=== PATIENT | male | born 1950 | race Caucasian/White ===

== ENCOUNTER 2018-10-23 13:50 | Day surgery (SDC) | payer MEDICARE, OTHER ==
[2018-10-20 09:40] LABS: BASOPHILS % (AUTO) 0.4 % (0-1); EOSINOPHILS # (AUTO) 0.2 X10'3 (0-0.9); EOSINOPHILS % (AUTO) 2.3 % (0-6); HEMATOCRIT 45.1 % (42.0-52.0); HEMOGLOBIN 15.1 g/dl (14.0-17.9); LYMPHOCYTES # (AUTO) 2.2 X10'3 (1.1-4.8); LYMPHOCYTES % (AUTO) 23.1 % (21-51); MEAN CORPUSCULAR HEMOGLOBIN 31.2 PG (27.0-31.0); MEAN CORPUSCULAR HGB CONC 33.6 g/dL (33.0-36.5); MEAN PLATELET VOLUME 9.4 FL (7.4-10.4); MONOCYTES % (AUTO) 10.2 % (2-12); PLATELET COUNT 254 X10'3 (140-440); RED BLOOD COUNT 4.85 X10'6 (4.70-6.10); RED CELL DISTRIBUTION WIDTH 15.5 % (11.5-14.5); WHITE BLOOD COUNT 9.4 X10'3 (4.5-11.0)
[2018-10-20 09:50] LABS: ALBUMIN 3.8 G/DL (3.4-5.0); ANION GAP 8 (8-16); BLOOD UREA NITROGEN 14 MG/DL (7-18); BUN/CREATININE RATIO 14.4 (5.4-32.0); CALCIUM 9.2 MG/DL (8.5-10.1); CHLORIDE 101 MMOL/L (99-107); CREATININE 0.97 MG/DL (0.60-1.10); GLUCOSE 178 MG/DL (70-104); POTASSIUM 4.3 MMOL/L (3.5-5.1); SODIUM 137 MMOL/L (135-145); TOTAL CARBON DIOXIDE 28.2 MMOL/L (24-32); eGFR 77 ML/MIN
[2018-10-20 09:57] LABS: PARTIAL THROMBOPLASTIN TIME 28 SECONDS (22-32)
[~2018-10-23] VITALS: Ht 162.6 cm; Wt 69.2 kg
[2018-10-23] VITALS (8 sets, daily range): BP systolic 113–159; BP diastolic 48–71
[~2018-10-23 13:50] MED LIST: ASPI-611 PO; ATOR80TA PO; CHOL100046 PO; CLOP75TA15 PO; GLIP10TA11 PO; HUM7525 SQ; INSU100V12 SQ; LIRA0.6P SQ; LISI1TAB11 PO; NITR0.4T51 SL; PIOG30TA10 PO; PREG300C PO
[2018-10-23] MEDS ORDERED: normal saline 1000ml 1,000 ML IV SCH (14:10)
[2018-10-23] MEDS ORDERED: diphenhydrAMINE 25mg capsule PO PRN (14:10)
[2018-10-23] MEDS ORDERED: LIDOcaine/PRILOcaine 5gm cream TP ONE (14:10)
[2018-10-23] MEDS ORDERED: LORazepam 0.5 MG tablet PO PRN (14:10)
[2018-10-23] MEDS ORDERED: MAGN400C PO (14:23)
[2018-10-23] MEDS ORDERED: PREG150C PO (14:23)
[2018-10-23] MEDS ORDERED: SOLI5TAB2 PO (14:23)
[2018-10-23] MEDS ORDERED: fentaNYL/PF 50MCG/1 ML 2ML syringe ONE (16:22)
[2018-10-23] MEDS ORDERED: midazolam 2 mg/2 ml injection ONE (16:22)
[2018-10-23] MEDS ORDERED: iohexol 350MG/ML 100ml bottle IV ONE ×2 (16:23→17:25)
[2018-10-23] MEDS ORDERED: LIDOcaine 1% (10mg/ml)w/preservative injection 20ml MDV ONE (16:23)
[2018-10-23] MEDS ORDERED: nitroGLYCERIN-Tridil 50MG/D5W 250 ML IV ONE (16:49)
[2018-10-23] MEDS ORDERED: verapamil 2.5 mg/ml inj IV ONE (16:49)
[2018-10-23] MEDS ORDERED: heparin 1,000unit/ml 10ml vial 10 ML ONE ×2 (16:49→17:25)
[2018-10-23] MEDS ORDERED: ticagrelor 90mg tablet ONE (17:23)
[2018-10-23] MEDS ORDERED: HYDROcodone/acetaminophen 10/325mg tab PO PRN (18:25)
[2018-10-23] MEDS ORDERED: OXAZEpam 15mg capsule PO PRN (18:25)
[2018-10-23] MEDS ORDERED: proCHLORperazine 10 MG/2 ml inj IV PRN (18:25)
[2018-10-23] MEDS ORDERED: HYDROcodone/acetaminophen 5mg/325mg tablet PO PRN (18:25)
[2018-10-23] MEDS ORDERED: ondansetron/PF 4mg/2ml inj IV PRN (18:25)
== END 2018-10-23 22:00 | disposition home or self-care (01) ==
LOC: SSTAY O 13:50
PROVIDERS: ATTEND Internal Medicine Interventional Cardiology
DX: I25.119 Atherosclerotic heart disease of native coronary artery with unspecified angina pectoris (principal); I73.9 Peripheral vascular disease, unspecified; I10 Essential (primary) hypertension; E78.5 Hyperlipidemia, unspecified; E11.9 Type 2 diabetes mellitus without complications; Z86.73 Personal history of transient ischemic attack (TIA), and cerebral infarction without residual deficits; Z95.5 Presence of coronary angioplasty implant and graft; Z72.0 Tobacco use; Z79.899 Other long term (current) drug therapy; Z79.4 Long term (current) use of insulin; Z79.82 Long term (current) use of aspirin
CPT/HCPCS: 36415; 80048; 82948; 85025; 85610; 85730; 93005; 93458; A6257; J1644; J2001; J2250; J3010; J7030; Q0163; Q9967; 92920; 99152; A4620; C1769; J3490

== ENCOUNTER 2018-11-23 05:15 | Inpatient (IN) | payer MEDICARE, OTHER | END 2018-11-28 13:30 | LOC: MED 3N 11-27 09:50 → PAS IN 05:15 → CICU 2S 10:51 | PROC: 02100A3 Bypass Coronary Artery, One Artery from Coronary Artery with Autologous Arterial Tissue, Open Approach (ICD-10-PCS; principal; 2018-11-23 06:56) | PROC: 0213099 Bypass Coronary Artery, Four or More Arteries from Left Internal Mammary with Autologous Venous Tissue, Open Approach (ICD-10-PCS; 2018-11-23 06:56) | PROC: 06BQ0ZZ Excision of Left Saphenous Vein, Open Approach (ICD-10-PCS; 2018-11-23 06:56) | PROC: 5A1935Z Respiratory Ventilation, Less than 24 Consecutive Hours (ICD-10-PCS; 2018-11-23 06:56) | DX: I25.110 Atherosclerotic heart disease of native coronary artery with unstable angina pectoris (principal); I73.9 Peripheral vascular disease, unspecified; I65.23 Occlusion and stenosis of bilateral carotid arteries; E11.8 Type 2 diabetes mellitus with unspecified complications; F17.200 Nicotine dependence, unspecified, uncomplicated ==

== ENCOUNTER 2019-01-01 17:37 | Observation (INO) | payer MEDICARE, OTHER ==
[~2019-01-01] VITALS: Ht 165.1 cm; Wt 65.0 kg
[~2019-01-01 17:37] MED LIST changes: -LIRA0.6P SQ; +LUTE40CA PO; +MAGN400C PO; +PREG150C PO; -PREG300C PO; +PYRI50TA13 PO; +SOLI5TAB2 PO; +VITA1TAB20 PO; +[UNRECOGNIZED DRUG - CODE] PO
[2019-01-01 19:01] LABS: BASOPHILS # (AUTO) 0.2 X10'3 (0-0.2); EOSINOPHILS # (AUTO) 0.4 X10'3 (0-0.9); EOSINOPHILS % (AUTO) 2.6 % (0-6); HEMOGLOBIN 12.7 g/dl (14.0-17.9); LYMPHOCYTES # (AUTO) 1.6 X10'3 (1.1-4.8); LYMPHOCYTES % (AUTO) 9.9 % (21-51); MEAN CORPUSCULAR HEMOGLOBIN 29.3 PG (27.0-31.0); MEAN CORPUSCULAR HGB CONC 33.4 g/dL (33.0-36.5); MEAN CORPUSCULAR VOLUME 87.8 FL (78-98); MEAN PLATELET VOLUME 9.4 FL (7.4-10.4); MONOCYTES # (AUTO) 1.4 X10'3 (0-0.9); MONOCYTES % (AUTO) 8.2 % (2-12); NEUTROPHILS # (AUTO) 12.9 X10'3 (1.8-7.7); NEUTROPHILS % (AUTO) 78.3 % (42-75); PLATELET COUNT 317 X10'3 (140-440); RED BLOOD COUNT 4.33 X10'6 (4.70-6.10); RED CELL DISTRIBUTION WIDTH 16.3 % (11.5-14.5); WHITE BLOOD COUNT 16.5 X10'3 (4.5-11.0)
[2019-01-01 19:14] LABS: ALANINE AMINOTRANSFERASE 37 U/L (12-78); ALBUMIN 3.5 G/DL (3.4-5.0); ALKALINE PHOSPHATASE 192 IU/L (46-116); ANION GAP 9 (8-16); ASPARTATE AMINO TRANSFERASE 22 U/L (10-37); BILIRUBIN,TOTAL 0.3 MG/DL (0.1-1.0); BLOOD UREA NITROGEN 12 MG/DL (7-18); CALCIUM 9.1 MG/DL (8.5-10.1); CHLORIDE 102 MMOL/L (99-107); CREATININE 0.92 MG/DL (0.60-1.10); GLUCOSE 226 MG/DL (70-104); POTASSIUM 4.2 MMOL/L (3.5-5.1); SODIUM 139 MMOL/L (135-145); TOTAL CARBON DIOXIDE 27.9 MMOL/L (24-32); TOTAL PROTEIN 7.1 G/DL (6.4-8.2); eGFR 81 ML/MIN
[2019-01-01 19:19] LABS: PARTIAL THROMBOPLASTIN TIME 26 SECONDS (22-32)
[2019-01-01] MEDS ORDERED: normal saline 1000ml 1,000 ML IV ONE (19:25)
[2019-01-01 19:58] LABS: CLARITY,URINE CLEAR (Clear); COLOR,URINE YELLOW (Yellow); GLUCOSE, URINE NEGATIVE (Neg); KETONES,URINE NEGATIVE (Neg); LEUKOCYTE ESTERASE ,URINE NEGATIVE (Neg); NITRITES, URINE NEGATIVE (Neg); OCCULT BLOOD,URINE NEGATIVE (Neg); PH,URINE 5.5 (4.8-8.0); PROTEIN,URINE NEGATIVE (Neg); UROBILINOGEN,URINE 0.2 E.U/dL (0.2-1.0)
[2019-01-01 20:01] LABS: UA COLLECTION TYPE CLN CATCH MIDSTREAM
[2019-01-01 20:04] LABS: ANISOCYTOSIS 1+; PLATELET ESTIMATE NORMAL; TOTAL CELLS COUNTED 100
[2019-01-01] MEDS ORDERED: AMIO200T40 PO (21:33)
[2019-01-01] MEDS ORDERED: HYDROcodone/acetaminophen 10/325mg tab PO PRN (21:40)
[2019-01-01] MEDS ORDERED: dextrose 50%-water 50ml dispensing syringe IV PRN ×2 (21:40)
[2019-01-01] MEDS ORDERED: Melatonin 3mg tablet PO PRN (21:40)
[2019-01-01] MEDS ORDERED: MESSAGE TO PHARMACY PO ONE (21:40)
[2019-01-01] MEDS ORDERED: acetaminophen 325mg tablet PO PRN (21:40)
[2019-01-01] MEDS ORDERED: glucagon, human recombinant 1mg kit SUBCUT PRN (21:40)
[2019-01-01] MEDS ORDERED: dextrose ORAL solution 15 GM/59 ML bottle PO PRN (21:40)
[2019-01-01] MEDS ORDERED: HYDROcodone/acetaminophen 5mg/325mg tablet PO PRN (21:40)
[2019-01-01] MEDS ORDERED: nitroGLYCERIN 0.4mg SUBLingual tab SL PRN (21:50)
--- NOTE | 2019-01-01 23:09 | NUR ---
Patient sleeping comfortably in bed.
--- NOTE | 2019-01-02 00:09 | NUR ---
Patient continues to sleep.
--- NOTE | 2019-01-02 01:22 | NUR ---
IV flushed while patient is awake. No requests at this time and he is resting comfortably in bed.
--- NOTE | 2019-01-02 05:05 | NUR ---
Patient sleeping comfortably in bed.
[2019-01-02 07:26] LABS: BASOPHILS # (AUTO) 0.1 X10'3 (0-0.2); BASOPHILS % (AUTO) 0.8 % (0-1); EOSINOPHILS # (AUTO) 0.6 X10'3 (0-0.9); EOSINOPHILS % (AUTO) 5.3 % (0-6); HEMATOCRIT 37.1 % (42.0-52.0); HEMOGLOBIN 12.2 g/dl (14.0-17.9); LYMPHOCYTES # (AUTO) 1.8 X10'3 (1.1-4.8); LYMPHOCYTES % (AUTO) 16.5 % (21-51); MEAN CORPUSCULAR HEMOGLOBIN 28.9 PG (27.0-31.0); MEAN CORPUSCULAR HGB CONC 32.9 g/dL (33.0-36.5); MEAN PLATELET VOLUME 9.5 FL (7.4-10.4); MONOCYTES # (AUTO) 1.2 X10'3 (0-0.9); MONOCYTES % (AUTO) 10.8 % (2-12); NEUTROPHILS # (AUTO) 7.3 X10'3 (1.8-7.7); NEUTROPHILS % (AUTO) 66.6 % (42-75); PLATELET COUNT 276 X10'3 (140-440); RED BLOOD COUNT 4.22 X10'6 (4.70-6.10); RED CELL DISTRIBUTION WIDTH 15.9 % (11.5-14.5); WHITE BLOOD COUNT 10.9 X10'3 (4.5-11.0)
[2019-01-02 07:41] LABS: ALBUMIN 3.1 G/DL (3.4-5.0); ANION GAP 8 (8-16); BLOOD UREA NITROGEN 11 MG/DL (7-18); BUN/CREATININE RATIO 12.6 (5.4-32.0); CALCIUM 8.8 MG/DL (8.5-10.1); CHLORIDE 107 MMOL/L (99-107); CREATININE 0.87 MG/DL (0.60-1.10); GLUCOSE 222 MG/DL (70-104); POTASSIUM 4.1 MMOL/L (3.5-5.1); SODIUM 139 MMOL/L (135-145); TOTAL CARBON DIOXIDE 24.3 MMOL/L (24-32); eGFR 87 ML/MIN
[2019-01-02] MEDS ORDERED: VIT A PO SCH (08:00)
[2019-01-02] MEDS ORDERED: COPPER PO SCH (08:00)
[2019-01-02] MEDS ORDERED: ZINC PO SCH (08:00)
[2019-01-02] MEDS ORDERED: insulin glargine (Lantus) pen - multi-dose SQ SCH (08:00)
[2019-01-02] MEDS ORDERED: SELENIUM PO SCH (08:00)
[2019-01-02] MEDS ORDERED: [UNRECOGNIZED DRUG - OTHER] PO SCH (08:00)
[2019-01-02] MEDS: magnesium oxide 400mg tablet PO SCH (08:48)
[2019-01-02] MEDS: aspirin 81mg tab.chew PO SCH (08:48)
[2019-01-02] MEDS: vitamin B comp w/Vit. C tab 1 TAB TABLET PO SCH (08:48)
[2019-01-02] MEDS: vitamin D (cholecalciferol) 1,000 unit tablet PO SCH ×2 (08:48→20:42)
[2019-01-02] MEDS: atorvastatin 20mg tablet PO SCH (08:49)
[2019-01-02] MEDS: pregabalin 75mg capsule PO SCH ×2 (08:49→20:42)
[2019-01-02] MEDS: enoxaparin 40mg/0.4ml syringe SUBCUT SCH (08:50)
[2019-01-02] MEDS: pyridoxine 50mg tablet PO SCH (08:57)
--- NOTE | 2019-01-02 08:59 | NUR ---
Requested Bret from Pharmacy
[2019-01-02 10:15] VITALS: BP 151/71
[2019-01-02 10:18] VITALS: BP_SYST 118; BP_SYST 133; BP_SYST 149; BP_DIAS 53; BP_DIAS 56; BP_DIAS 69
[2019-01-02] MEDS: normal saline 1000ml 1,000 ML IV SCH ×2 (10:48→23:06)
[2019-01-02] MEDS ORDERED: AMIO200T40 PO (11:15)
[2019-01-02] MEDS: insulin Lispro (HumaLOG) vial - multi-dose SQ SCH (14:10)
[2019-01-02 15:00] VITALS: BP 145/58
[2019-01-02] MEDS: dextrose ORAL solution 15 GM/59 ML bottle PO PRN (16:51)
--- NOTE | 2019-01-02 17:07 | NUR ---
PAGER ID: [phone] MESSAGE: Dr. Irene, cortez Nixon in 0614N has a critical glucose of 52. I have begun treatment per protocol. Art, [id number]
--- NOTE | 2019-01-02 17:23 | NUR ---
Blood sugar stable after treatment.
[2019-01-02 18:00] VITALS: BP 162/62
--- NOTE | 2019-01-02 18:28 | NUR ---
Problems reprioritized. Patient report given, questions answered & plan of care reviewed with MARY CARMEN Cornejo.
--- NOTE | 2019-01-02 18:36 | NUR ---
Patient in room PCU 3028. I have received report from Art and had the opportunity to ask questions and assume patient care.
--- NOTE | 2019-01-02 18:38 | NUR ---
Patient in room PCU 3028. I have received report from Catalino RN and had the opportunity to ask questions and assume patient care. Pt is currently lying in bed. No complaints at this time. Is requesting an NC bc he wears 2L at home. NS running at 75. Alert and oriented. Receptive to care.
--- NOTE | 2019-01-02 19:33 | NUR ---
MESSAGE: Sam Bishop Nixon in 1463U here for syncope, brought new Rx of losartan that is 100mg PO daily. He has been hypertensive with no PRNs. Would you like to start this med tonight? Afia Mai Addendum: 01/02/19 at [address] by Afia Cantu [address] Dr. Yan would like this prescription to be started tonight. Order placed.
[2019-01-02 20:00] VITALS: BP_SYST 162; BP_SYST 169; BP_SYST 172; BP_DIAS 62; BP_DIAS 70; BP_DIAS 72
[2019-01-02] MEDS: losartan 50mg tablet PO SCH (20:42)
[2019-01-02] MEDS: insulin glargine (Lantus) pen - multi-dose SQ SCH (21:00)
--- NOTE | 2019-01-02 21:33 | NUR ---
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 He would like this to be brought up with CM/DCP 01/03 so that he can continue having home health when he returns home.
[2019-01-02 22:00] VITALS: BP 148/61
[2019-01-03] VITALS (11 sets, daily range): BP systolic 123–185; BP diastolic 47–80
[2019-01-03] MEDS: normal saline 1000ml 1,000 ML IV SCH
[2019-01-03 04:56] LABS: BASOPHILS # (AUTO) 0.1 X10'3 (0-0.2); BASOPHILS % (AUTO) 0.6 % (0-1); EOSINOPHILS # (AUTO) 0.5 X10'3 (0-0.9); EOSINOPHILS % (AUTO) 6.6 % (0-6); HEMATOCRIT 34.5 % (42.0-52.0); HEMOGLOBIN 11.6 g/dl (14.0-17.9); LYMPHOCYTES # (AUTO) 1.9 X10'3 (1.1-4.8); MEAN CORPUSCULAR HEMOGLOBIN 29.5 PG (27.0-31.0); MEAN CORPUSCULAR HGB CONC 33.8 g/dL (33.0-36.5); MEAN CORPUSCULAR VOLUME 87.5 FL (78-98); MEAN PLATELET VOLUME 9.6 FL (7.4-10.4); MONOCYTES % (AUTO) 11.8 % (2-12); NEUTROPHILS # (AUTO) 4.7 X10'3 (1.8-7.7); PLATELET COUNT 276 X10'3 (140-440); RED BLOOD COUNT 3.94 X10'6 (4.70-6.10); WHITE BLOOD COUNT 8.1 X10'3 (4.5-11.0)
[2019-01-03 05:05] LABS: ALBUMIN 2.9 G/DL (3.4-5.0); ANION GAP 8 (8-16); BLOOD UREA NITROGEN 10 MG/DL (7-18); CALCIUM 8.6 MG/DL (8.5-10.1); CHLORIDE 106 MMOL/L (99-107); CREATININE 0.83 MG/DL (0.60-1.10); GLUCOSE 190 MG/DL (70-104); POTASSIUM 4.3 MMOL/L (3.5-5.1); SODIUM 141 MMOL/L (135-145); TOTAL CARBON DIOXIDE 27.4 MMOL/L (24-32); eGFR > 90 ML/MIN
--- NOTE | 2019-01-03 06:34 | NUR ---
Problems reprioritized. Patient report given, questions answered & plan of care reviewed with
--- NOTE | 2019-01-03 06:39 | NUR ---
Problems reprioritized. Patient report given, questions answered & plan of care reviewed with BETO LENTZ. NEW GRAD documentation: I have reviewed and agree with all interventions, assessments performed and documented by YULI LENTZ. NEW GRAD Medication Administration: For this medication-pass time frame, all medication were reviewed, dispensed, administered and documented per hospital policy by YULI LENTZ.
--- NOTE | 2019-01-03 06:48 | NUR ---
Patient in room PCU 3028. I have received report from Chantal RN & MARY CARMEN Bob and had the opportunity to ask questions and assume patient care.
[2019-01-03] MEDS: insulin glargine (Lantus) pen - multi-dose SQ SCH ×2 (08:00→21:47)
[2019-01-03] MEDS: atorvastatin 20mg tablet PO SCH (08:40)
[2019-01-03] MEDS: pyridoxine 50mg tablet PO SCH (08:40)
[2019-01-03] MEDS: aspirin 81mg tab.chew PO SCH (08:40)
[2019-01-03] MEDS: enoxaparin 40mg/0.4ml syringe SUBCUT SCH (08:40)
[2019-01-03] MEDS: vitamin B comp w/Vit. C tab 1 TAB TABLET PO SCH (08:41)
[2019-01-03] MEDS: pregabalin 75mg capsule PO SCH ×2 (08:41→19:08)
[2019-01-03] MEDS: magnesium oxide 400mg tablet PO SCH (08:41)
[2019-01-03] MEDS: vitamin D (cholecalciferol) 1,000 unit tablet PO SCH ×2 (08:42→19:08)
[2019-01-03] MEDS: losartan 50mg tablet PO SCH (08:42)
[2019-01-03] MEDS: insulin Lispro (HumaLOG) vial - multi-dose SQ SCH ×3 (08:52→19:01)
--- NOTE | 2019-01-03 11:33 | NUR ---
Paged Dr. Irene re pt's walk with PT. PAGER ID: [phone] MESSAGE: Pt Bishop Nixon in 3324U. B/P up to 185/80 with PT. Pt felt dizzy & very weak while walking, states worse than at home. Thanks! Genny LENTZ [phone]
[2019-01-03] MEDS: meclizine 12.5mg tablet PO SCH ×2 (14:37→19:08)
--- NOTE | 2019-01-03 15:18 | NUR ---
Paged Dr. Irene re pt's latest B/P PAGER ID: [phone] MESSAGE: Pt Bishop Nixon in 2425K latest B/P . Thanks! Genny LENTZ [phone]
[2019-01-03] MEDS: dextrose ORAL solution 15 GM/59 ML bottle PO PRN (16:34)
--- NOTE | 2019-01-03 18:25 | NUR ---
Patient in room PCU 3028. I have received report from Genny LENTZ and had the opportunity to ask questions and assume patient care.
--- NOTE | 2019-01-03 18:27 | NUR ---
Problems reprioritized. Patient report given, questions answered & plan of care reviewed with MARY CARMEN Rosales.
[2019-01-04 03:00] VITALS: BP 118/47
[2019-01-04 05:39] LABS: BASOPHILS # (AUTO) 0.1 X10'3 (0-0.2); BASOPHILS % (AUTO) 0.8 % (0-1); EOSINOPHILS # (AUTO) 0.6 X10'3 (0-0.9); EOSINOPHILS % (AUTO) 7.2 % (0-6); HEMATOCRIT 36.4 % (42.0-52.0); HEMOGLOBIN 12.2 g/dl (14.0-17.9); LYMPHOCYTES % (AUTO) 23.8 % (21-51); MEAN CORPUSCULAR HEMOGLOBIN 29.3 PG (27.0-31.0); MEAN CORPUSCULAR HGB CONC 33.6 g/dL (33.0-36.5); MEAN CORPUSCULAR VOLUME 87.2 FL (78-98); MEAN PLATELET VOLUME 9.6 FL (7.4-10.4); MONOCYTES # (AUTO) 1.1 X10'3 (0-0.9); MONOCYTES % (AUTO) 12.2 % (2-12); NEUTROPHILS # (AUTO) 4.8 X10'3 (1.8-7.7); PLATELET COUNT 287 X10'3 (140-440); RED BLOOD COUNT 4.17 X10'6 (4.70-6.10); RED CELL DISTRIBUTION WIDTH 16.3 % (11.5-14.5); WHITE BLOOD COUNT 8.6 X10'3 (4.5-11.0)
[2019-01-04 05:48] LABS: ALBUMIN 2.9 G/DL (3.4-5.0); ANION GAP 9 (8-16); BLOOD UREA NITROGEN 10 MG/DL (7-18); BUN/CREATININE RATIO 12.2 (5.4-32.0); CALCIUM 8.7 MG/DL (8.5-10.1); CHLORIDE 105 MMOL/L (99-107); CREATININE 0.82 MG/DL (0.60-1.10); GLUCOSE 157 MG/DL (70-104); POTASSIUM 3.8 MMOL/L (3.5-5.1); SODIUM 141 MMOL/L (135-145); TOTAL CARBON DIOXIDE 27.5 MMOL/L (24-32); eGFR > 90 ML/MIN
[2019-01-04 06:00] VITALS: BP 145/64
--- NOTE | 2019-01-04 06:16 | NUR ---
Problems reprioritized. Patient report given, questions answered & plan of care reviewed with Kiara LENTZ.
--- NOTE | 2019-01-04 06:31 | NUR ---
Patient in room PCU 3028A. I have received report from Connie LENTZ and had the opportunity to ask questions and assume patient care.
--- NOTE | 2019-01-04 06:31 | NUR ---
Patient in room PCU 3028. I have received report from Connie LENTZ and had the opportunity to ask questions and assume patient care. Patient resting in bed, vitals are stable, will continue to monitor.
[2019-01-04 08:00] VITALS: BP_SYST 126; BP_SYST 129; BP_SYST 133; BP_DIAS 59; BP_DIAS 63; BP_DIAS 64
[2019-01-04] MEDS: insulin glargine (Lantus) pen - multi-dose SQ SCH (08:00)
[2019-01-04] MEDS: pyridoxine 50mg tablet PO SCH (08:08)
[2019-01-04] MEDS: enoxaparin 40mg/0.4ml syringe SUBCUT SCH (08:08)
[2019-01-04] MEDS: vitamin D (cholecalciferol) 1,000 unit tablet PO SCH (08:09)
[2019-01-04] MEDS: atorvastatin 20mg tablet PO SCH (08:11)
[2019-01-04] MEDS: meclizine 12.5mg tablet PO SCH (08:12)
[2019-01-04] MEDS: losartan 50mg tablet PO SCH (08:13)
[2019-01-04] MEDS: pregabalin 75mg capsule PO SCH (08:13)
[2019-01-04] MEDS: vitamin B comp w/Vit. C tab 1 TAB TABLET PO SCH (08:13)
[2019-01-04] MEDS: magnesium oxide 400mg tablet PO SCH (08:14)
[2019-01-04] MEDS: aspirin 81mg tab.chew PO SCH (08:14)
[2019-01-04] MEDS: insulin Lispro (HumaLOG) vial - multi-dose SQ SCH (08:43)
[2019-01-04] MEDS ORDERED: LOSA50TA64 PO (10:26)
[2019-01-04] MEDS ORDERED: MECL12.584 PO (10:26)
[2019-01-04 11:00] VITALS: BP 125/55
--- NOTE | 2019-01-04 12:25 | NUR ---
Dr. Gleason declared patient stable for discharge. IV and telemetry DC'd, cannula was intact. Wound photos taken. Patient educated and had opportunity to ask questions. Patient will follow up with GP within one week. All belongings were sent with patient. He was escorted in a wheelchair by [facility] and went home with in private vehicle
--- NOTE | 2019-01-04 12:48 | NUR ---
Orientee documation: I have reviewed and agree with all interventions, assessments performed and documented by Pam LENTZ.
== END 2019-01-04 12:30 | disposition home or self-care (01) ==
LOC: ER 17:37 → PCU 3S 01-02 07:48 → CMPBEDREQ 01-02 20:00
PROVIDERS: ADMIT Hospitalist; ATTEND Hospitalist
DX: S00.81XA Abrasion of other part of head, initial encounter (principal); I25.10 Atherosclerotic heart disease of native coronary artery without angina pectoris; R55 Syncope and collapse; R42 Dizziness and giddiness; I10 Essential (primary) hypertension; E78.00 Pure hypercholesterolemia, unspecified; N40.0 Benign prostatic hyperplasia without lower urinary tract symptoms; E11.40 Type 2 diabetes mellitus with diabetic neuropathy, unspecified; E78.5 Hyperlipidemia, unspecified; W18.30XA Fall on same level, unspecified, initial encounter; Z95.1 Presence of aortocoronary bypass graft; Z79.4 Long term (current) use of insulin
CPT/HCPCS: 36415; 70450; 71045; 72125; 73080; 73110; 80048; 80053; 81003; 82948; 84484; 85025; 85610; 85730; 87070; 93005; 93308; 96360; 96372; 97116; 97162; 97530; 99284; G0378; J7030; J8597; 99285; J1650; J1815

== ENCOUNTER 2020-02-25 11:36 | Day surgery (SDC) | payer MEDICARE, OTHER ==
[~2020-02-25] VITALS: Ht 165.1 cm; Wt 65.0 kg
[~2020-02-25 11:36] MED LIST changes: +AMIO200T61 PO; -CLOP75TA15 PO; -LISI1TAB11 PO; +LOSA50TA64 PO; +MECL-183 PO; -PIOG30TA10 PO; +VIT-11 PO; -[UNRECOGNIZED DRUG - CODE] PO
[2020-02-25 12:02] VITALS: BP 149/67
[2020-02-25] MEDS ORDERED: LIDOcaine 1%/PF 5ML 10 MG/ML VIAL ONE (12:04)
[2020-02-25] MEDS ORDERED: iohexol 300 MG/1 ML 50ml polymer ONE (12:04)
[2020-02-25] MEDS ORDERED: LOSA25TA96 PO (12:08)
[2020-02-25] MEDS ORDERED: AMLO10TA48 PO (12:08)
[2020-02-25] MEDS ORDERED: normal saline 1000ml 1,000 ML IV SCH (12:14)
[2020-02-25 12:45] VITALS: BP 108/48
[2020-02-25 13:00] VITALS: BP 110/46
[2020-02-25 13:15] VITALS: BP 105/65
== END 2020-02-25 13:20 | disposition home or self-care (01) ==
LOC: SSTAY O 11:36
PROVIDERS: ATTEND Radiology Diagnostic Radiology
DX: Z43.1 Encounter for attention to gastrostomy (principal); R13.10 Dysphagia, unspecified
CPT/HCPCS: 43763; 74018; Q9967; B4087

== ENCOUNTER 2020-04-30 13:25 | Outpatient (CLI) | payer MEDICARE, OTHER ==
[~2020-04-30 13:25] MED LIST changes: +AMLO10TA48 PO; -GLIP10TA11 PO; +LOSA25TA96 PO; -LOSA50TA64 PO; -LUTE40CA PO; -MAGN400C PO; -MECL-183 PO; -PYRI50TA13 PO; -SOLI5TAB2 PO; -VIT-11 PO; -VITA1TAB20 PO; +barium sulfate 450ml oral suspension ONE
== END 2020-04-30 23:59 | disposition home or self-care (01) ==
LOC: RAD 13:25
PROVIDERS: ATTEND Psychiatry & Neurology Neurology
DX: R13.12 Dysphagia, oropharyngeal phase (principal); G12.22 Progressive bulbar palsy; R49.0 Dysphonia
CPT/HCPCS: 74230

== ENCOUNTER 2021-06-09 09:00 | Emergency (ER) | payer MEDICARE, OTHER ==
[~2021-06-09] VITALS: Ht 165.1 cm; Wt 61.8 kg
[~2021-06-09 09:00] MED LIST changes: -barium sulfate 450ml oral suspension ONE
[2021-06-09] MEDS ORDERED: iohexol 300 MG/1 ML 50ml polymer ONE (14:33)
--- NOTE | 2021-06-09 15:36 | NUR ---
patient returned from angio with new g tube
[2021-06-09] MEDS ORDERED: GLIP5TAB13 PO ×2 (17:14)
[2021-06-09] MEDS ORDERED: LOSA100T57 PO (17:14)
--- NOTE | 2021-06-09 17:18 | NUR ---
ADJUNCT PROFESSOR OF ENGLISH AT BEDSIDE.
[2021-06-09 17:20] VITALS: BP 142/85
== END 2021-06-09 18:59 | disposition home or self-care (01) ==
LOC: ER 09:01
DX: K94.23 Gastrostomy malfunction (principal); E78.00 Pure hypercholesterolemia, unspecified; I10 Essential (primary) hypertension; Z88.6 Allergy status to analgesic agent
CPT/HCPCS: 49450; 71045; 71250; 82948; 99285; B4087; C1769; Q9967

== ENCOUNTER 2021-10-02 08:35 | Day surgery (SDC) | payer MEDICARE ==
[~2021-10-02] VITALS: Ht 162.6 cm; Wt 55.7 kg
[~2021-10-02 08:35] MED LIST changes: +GLIP5TAB13 PO; +LOSA100T57 PO; -LOSA25TA96 PO
[2021-10-02] MEDS ORDERED: iohexol 300 MG/1 ML 50ml polymer ONE (09:06)
[2021-10-02 09:20] VITALS: BP 152/55
--- NOTE | 2021-10-02 09:25 | NUR ---
G-tube exchange performed by angio. KUB xray ordered. Awaiting results. Patient denies pain. VSS. Site CDI.
[2021-10-02] MEDS ORDERED: MULT-620 PO (09:53)
[2021-10-02] MEDS ORDERED: CALC250T2 PO (09:53)
[2021-10-02] MEDS ORDERED: VITA1CAP16 PO (09:53)
[2021-10-02] MEDS ORDERED: SOLI10TA2 PO (09:53)
== END 2021-10-02 09:40 | disposition home or self-care (01) ==
LOC: SSTAY O 08:35
PROVIDERS: ATTEND Radiology Vascular & Interventional Radiology
DX: Z43.1 Encounter for attention to gastrostomy (principal); I10 Essential (primary) hypertension; E78.00 Pure hypercholesterolemia, unspecified; N40.0 Benign prostatic hyperplasia without lower urinary tract symptoms; E11.9 Type 2 diabetes mellitus without complications; Z98.41 Cataract extraction status, right eye; Z98.42 Cataract extraction status, left eye; Z88.8 Allergy status to other drugs, medicaments and biological substances; Z79.84 Long term (current) use of oral hypoglycemic drugs; Z79.82 Long term (current) use of aspirin; Z79.899 Other long term (current) drug therapy; Z82.49 Family history of ischemic heart disease and other diseases of the circulatory system; Z83.3 Family history of diabetes mellitus
CPT/HCPCS: 43762; 74018; B4087; Q9967

== ENCOUNTER 2022-01-15 08:18 | Day surgery (SDC) | payer MEDICARE ==
[~2022-01-15] VITALS: Ht 162.6 cm; Wt 62.1 kg
[~2022-01-15 08:18] MED LIST changes: -AMIO200T61 PO; -ASPI-611 PO; +CALC250T2 PO; -CHOL100046 PO; +MULT-620 PO; -NITR0.4T51 SL; +SOLI10TA2 PO; +VITA1CAP16 PO
[2022-01-15] MEDS ORDERED: MIRA50TA PO (08:45)
[2022-01-15 08:53] VITALS: BP 142/63
[2022-01-15] MEDS ORDERED: iohexol 300 MG/1 ML 50ml polymer ONE (09:52)
[2022-01-15] MEDS ORDERED: LIDOCAINE 1% w/preservative (10 MG/ML) inj. 10mL VIAL ONE (09:52)
[2022-01-15 09:56] VITALS: BP 159/78
[2022-01-15 10:05] VITALS: BP 145/64
== END 2022-01-15 10:20 | disposition home or self-care (01) ==
LOC: SSTAY O 08:18
PROVIDERS: ATTEND Radiology Vascular & Interventional Radiology
DX: Z43.1 Encounter for attention to gastrostomy (principal); R47.02 Dysphasia; E78.00 Pure hypercholesterolemia, unspecified; I10 Essential (primary) hypertension; N40.0 Benign prostatic hyperplasia without lower urinary tract symptoms; E11.9 Type 2 diabetes mellitus without complications; Z79.4 Long term (current) use of insulin; Z79.899 Other long term (current) drug therapy; Z88.8 Allergy status to other drugs, medicaments and biological substances
CPT/HCPCS: 43762; 74018; 82948; B4087; Q9967

== ENCOUNTER 2022-05-21 08:20 | Day surgery (SDC) | payer MEDICARE ==
[~2022-05-21] VITALS: Ht 162.6 cm; Wt 60.4 kg
[~2022-05-21 08:20] MED LIST changes: +MIRA50TA PO; -SOLI10TA2 PO
[2022-05-21 08:50] VITALS: BP 146/67
[2022-05-21] MEDS ORDERED: IOPAMIDOL 10 ML VIAL IT ONE (10:33)
[2022-05-21 10:50] VITALS: BP 146/73
[2022-05-21 11:00] VITALS: BP 145/70
== END 2022-05-21 11:35 | disposition home or self-care (01) ==
LOC: SSTAY O 08:20
PROVIDERS: ATTEND Radiology Vascular & Interventional Radiology
DX: Z43.1 Encounter for attention to gastrostomy (principal); R47.02 Dysphasia; E78.00 Pure hypercholesterolemia, unspecified; I10 Essential (primary) hypertension; E11.9 Type 2 diabetes mellitus without complications; Z98.49 Cataract extraction status, unspecified eye; Z98.890 Other specified postprocedural states; Z88.8 Allergy status to other drugs, medicaments and biological substances; Z79.899 Other long term (current) drug therapy
CPT/HCPCS: 43762; 74018; B4087; Q9966

== ENCOUNTER 2022-11-24 10:56 | Day surgery (SDC) | payer MEDICARE ==
[~2022-11-24] VITALS: Ht 162.6 cm; Wt 60.4 kg
[~2022-11-24 10:56] MED LIST changes: -MIRA50TA PO; +OXYB-58 PO; -VITA1CAP16 PO
[2022-11-24 11:24] VITALS: BP 150/68
[2022-11-24] MEDS ORDERED: iohexol 300mg/ml 100ml inj. ONE (13:17)
[2022-11-24 13:36] VITALS: BP 145/86
== END 2022-11-24 13:50 | disposition home or self-care (01) ==
LOC: SSTAY O 10:56
PROVIDERS: ATTEND Radiology Vascular & Interventional Radiology
DX: Z43.1 Encounter for attention to gastrostomy (principal); I10 Essential (primary) hypertension; E11.9 Type 2 diabetes mellitus without complications; E78.00 Pure hypercholesterolemia, unspecified; N40.0 Benign prostatic hyperplasia without lower urinary tract symptoms; Z98.49 Cataract extraction status, unspecified eye; Z95.1 Presence of aortocoronary bypass graft; Z98.890 Other specified postprocedural states; Z79.4 Long term (current) use of insulin; Z79.899 Other long term (current) drug therapy; Z88.8 Allergy status to other drugs, medicaments and biological substances
CPT/HCPCS: 49450; B4087; Q9967; J7030

== ENCOUNTER 2023-05-27 07:54 | Day surgery (SDC) | payer MEDICARE ==
[~2023-05-27] VITALS: Ht 162.6 cm; Wt 62.6 kg
[~2023-05-27 07:54] MED LIST changes: -LOSA100T57 PO; +LOSA100T58 PO; -OXYB-58 PO
[2023-05-27] MEDS ORDERED: VIBE75TA PO (08:14)
[2023-05-27] MEDS ORDERED: DOXA1TAB2 PO (08:15)
[2023-05-27] MEDS ORDERED: SERT-433 PO (08:15)
[2023-05-27] MEDS ORDERED: albumin 25% 100mL bottle x 1 IV PRN (08:20)
[2023-05-27] MEDS ORDERED: iohexol 300 MG/1 ML 50ml polymer ONE (08:36)
[2023-05-27 09:04] VITALS: RESP 17; O2SAT 93
== END 2023-05-27 09:45 | disposition home or self-care (01) ==
LOC: SSTAY O 07:54
PROVIDERS: ATTEND Radiology Vascular & Interventional Radiology
DX: Z43.1 Encounter for attention to gastrostomy (principal); I69.391 Dysphagia following cerebral infarction; K56.2 Volvulus; E78.00 Pure hypercholesterolemia, unspecified; I10 Essential (primary) hypertension; N40.0 Benign prostatic hyperplasia without lower urinary tract symptoms; E11.9 Type 2 diabetes mellitus without complications; Z88.8 Allergy status to other drugs, medicaments and biological substances; Z79.899 Other long term (current) drug therapy; Z79.4 Long term (current) use of insulin
CPT/HCPCS: 43762; 74018; Q9967

== ENCOUNTER 2023-08-26 09:29 | Day surgery (SDC) | payer MEDICARE, OTHER ==
[~2023-08-26] VITALS: Ht 162.6 cm; Wt 62.3 kg
[~2023-08-26 09:29] MED LIST changes: -AMLO10TA48 PO; +ASPI-612 PO; -CALC250T2 PO; +DOXA1TAB2 PO; -INSU100V12 SQ; -MULT-620 PO; +PYRI100T10 PO; +SUPER B COMPLEX PO; +iohexol 300 MG/1 ML 50ml polymer ONE
[2023-08-26 10:07] VITALS: BP 158/81; PULSE 61; RESP 16; RESP 18; TEMP 98.1; O2SAT 95
[2023-08-26 10:10] VITALS: BP 158/81; PULSE 65; RESP 16; O2SAT 94
[2023-08-26 10:17] VITALS: BP 165/83; PULSE 60; RESP 16; O2SAT 95
[2023-08-26] MEDS ORDERED: CALC250T2 PO (10:35)
[2023-08-26] MEDS ORDERED: MULT-1085 PO (10:35)
[2023-08-26] MEDS ORDERED: INSU100V12 SQ (10:35)
[2023-08-26] MEDS ORDERED: AMLO10TA48 PO (10:35)
== END 2023-08-26 10:30 | disposition home or self-care (01) ==
LOC: SSTAY O 09:29
PROVIDERS: ATTEND Radiology Vascular & Interventional Radiology
DX: Z43.1 Encounter for attention to gastrostomy (principal); E78.00 Pure hypercholesterolemia, unspecified; I10 Essential (primary) hypertension; N40.0 Benign prostatic hyperplasia without lower urinary tract symptoms; E11.9 Type 2 diabetes mellitus without complications; Z88.8 Allergy status to other drugs, medicaments and biological substances; Z79.4 Long term (current) use of insulin; Z79.899 Other long term (current) drug therapy; Z95.1 Presence of aortocoronary bypass graft; Z98.890 Other specified postprocedural states; Z98.61 Coronary angioplasty status
CPT/HCPCS: 43762; 74018; B4087; Q9967

== ENCOUNTER 2023-11-17 08:26 | Outpatient (CLI) | payer MEDICARE, OTHER ==
[~2023-11-17 08:26] MED LIST changes: +AMLO10TA48 PO; +CALC250T2 PO; -GLIP5TAB13 PO; +GLIP5TAB23 PO; +INSU100V12 SQ; +MULT-1085 PO; -iohexol 300 MG/1 ML 50ml polymer ONE
[2023-11-17 09:03] LABS: ALBUMIN 3.1 G/DL (3.4-5.0); ANION GAP 6 (8-16); BLOOD UREA NITROGEN 25 MG/DL (7-18); BUN/CREATININE RATIO 29.8 (10.0-20.0); CALCIUM 8.5 MG/DL (8.5-10.1); CHLORIDE 108 MMOL/L (99-107); CREATININE 0.84 MG/DL (0.60-1.10); GLUCOSE 122 MG/DL (70-104); POTASSIUM 4.1 MMOL/L (3.5-5.1); SODIUM 145 MMOL/L (135-145); TOTAL CARBON DIOXIDE 30.9 MMOL/L (24-32); eGFR 89 ML/MIN
[2023-11-17] MEDS ORDERED: iohexol 350MG/ML 100ml bottle IV ONE (09:16)
== END 2023-11-17 23:59 | disposition home or self-care (01) ==
LOC: RAD 08:26
PROVIDERS: ATTEND Student in an Organized Health Care Education/Training Program
DX: I65.23 Occlusion and stenosis of bilateral carotid arteries (principal); I10 Essential (primary) hypertension
CPT/HCPCS: 36415; 70498; 80048; J3490; Q9967

== ENCOUNTER 2025-02-06 09:50 | Outpatient (CLI) | payer MEDICARE, OTHER ==
[~2025-02-06] VITALS: Ht 162.6 cm; Wt 60.8 kg
[~2025-02-06 09:50] MED LIST changes: +AMLO-888 PO; -AMLO10TA48 PO
[2025-02-06 10:18] LABS: TOTAL HEMOGLOBIN 14.9 G/dl (13.5-17.5)
[2025-02-06] MEDS: albuterol 2.5 MG/3 ML nebule NEB ONE (10:50)
[2025-02-06 11:01] VITALS: PULSE 46; RESP 18; O2SAT 95
[2025-02-06 11:14] VITALS: PULSE 48; RESP 18
--- NOTE | 2025-02-08 10:25 | PROCEDURE NOTE - Respiratory ---
Procedure Note-Respiratory Providers to Copies To 1: CAS JACKSON MD Procedure Name: A complete pulmonary function study dated February 06, 2025. Hemoglobin measurement was done as part of the study. A maximal inspiratory pressure measurement was also accomplished. Spirometry measurements: The forced vital capacity is very minimally reduced. The FEV1 is more significantly reduced. The FEV1 ratio is reduced as well. All of the flow rate measurements are substantially reduced. After inhaled bronchodilator was administered, the FEV1 and the flow rates show significant improvement. Spirometry suggests moderate to severe obstructive ventilatory defect with slight reversibility with bronchodilator medicine. Lung volume measurements: The total lung capacity is normal. There is slight elevation in the functional residual capacity and the residual volume measurements. This suggests a slight degree of air trapping within the lungs. Lung diffusion measurement: The DLCO measurement is substantially reduced. It is noted that the hemoglobin measurement is normal. Airway resistance measurement: The airway resistance is normal. Overall conclusion: This study shows abnormality. There is evidence for obstructive ventilatory defect in the moderately severe category. The patient shows slight improvement with inhaled bronchodilator. Lung volume measurements suggest a slight degree of air trapping within the lungs. The lung diffusion capacity is substantially reduced. 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 It is strongly recommended that the patient abstain from cigarette smoking. Bronchodilator therapy is recommended for this patient. We have no previous studies for comparison. Measurement for maximum inspiratory pressure and maximum expiratory pressure was accomplished. This patient shows inability to generate normal MIP pressures and MEP pressures. This suggests weakness of the respiratory musculature. This is likely related to the patient's history of myasthenia gravis. Clinical correlation is suggested. Hemoglobin studies demonstrate 2.7% of the hemoglobin amount is combined with carbon monoxide. This suggests the patient has been smoking cigarettes quite recently. CAS JACKSON MD February 08, 2025 10:25
== END 2025-02-06 23:59 | disposition home or self-care (01) ==
LOC: RT 09:50
PROVIDERS: ATTEND Internal Medicine Pulmonary Disease
DX: J44.9 Chronic obstructive pulmonary disease, unspecified (principal); R06.02 Shortness of breath
CPT/HCPCS: 85018; 94060; 94727; 94729; 94760